=== PATIENT | male | born 1960 | race African-American/Black ===

== ENCOUNTER 2018-09-09 17:58 | Inpatient (IN) | payer MEDICAID ==
[~2018-09-09] VITALS: Ht 170.2 cm; Wt 54.0 kg
[~2018-09-09 17:58] MED LIST: DIVAL250 PO; LURA40TA PO
[2018-09-09] MEDS ORDERED: ASPIRIN 81MG TABLET PO ONE (18:30)
[2018-09-09] MEDS ORDERED: NITROGLYCERIN OINT 1GM/INCH UDPKT TD ONE (18:30)
[2018-09-09 19:09] LABS: BASOPHILS % 0.9 % (0.0-2.0); EOSINOPHILS % 3.6 % (0.0-5.0); HEMATOCRIT. 33.4 % (42.0-52.0); HEMOGLOBIN. 10.8 g/dL (14.0-18.0); LYMPHOCYTES % 20.5 % (20.0-50.0); MEAN CORPUSCULAR HEMOGLOBIN 28.8 pg (28.0-32.0); MEAN CORPUSCULAR VOLUME 88.8 fL (80.0-94.0); MEAN PLATELET VOLUME 6.3 fl (7.4-10.4); MONOCYTES % 11.2 % (2.0-8.0); NEUTROPHILS % 63.8 % (40.0-76.0); PLATELET 664 x1000/uL (130-400); RED BLOOD CELL COUNT 3.77 mill/uL (4.7-6.1); RED CELL DISTRIBUTION WIDTH 14.6 % (11.6-14.6)
[2018-09-09 19:13] LABS: CHLORIDE 102 mEq/L (98-107)
[2018-09-09 19:16] LABS: D-DIMER 1.04 mg/L FEU (<0.50); INR 1.1; PROTHROMBIN TIME 10.7 sec (9.1-11.1)
[2018-09-09] MEDS ORDERED: MORPHINE SULFATE 2 MG/ML CPJ (NOT FOR IM USE) IV ONE (20:15)
[2018-09-09] MEDS ORDERED: LEVOFLOXACIN 750MG PREMIX 150 ML IV ONE (20:15)
[2018-09-09] MEDS ORDERED: IOHEXOL-350 100 ML BOTTLE ONE (21:28)
[2018-09-10] VITALS (7 sets, daily range): BP systolic 110–130; BP diastolic 70–84
[2018-09-10] MEDS ORDERED: DIVA125T2 PO (01:26)
[2018-09-10] MEDS ORDERED: LURA20TA PO (01:26)
[2018-09-10] MEDS ORDERED: ACETAMINOPHEN 325MG TABLET PO PRN (01:45)
[2018-09-10] MEDS ORDERED: LORAZEPAM 1MG TABLET PO PRN (01:45)
[2018-09-10] MEDS: IPRATROPIUM/ALBUTEROL 0.5-3(2.5)MG/3ML NEB HHN SCH ×5 (05:44→22:03)
[2018-09-10] MEDS: MORPHINE SULFATE 4 MG/ML CPJ (NOT FOR IM USE) IV PRN ×2 (12:43→19:59)
[2018-09-10] MEDS ORDERED: LACTULOSE 20G/30ML UDC PO PRN (14:45)
[2018-09-10 15:54] LABS: CREATINE KINASE 90 IU/L (39-308); CREATINE KINASE MB FRACTION < 1.0 ng/mL (0.5-3.6); HDL CHOLESTEROL 36 mg/dL (40-59); LDL CHOLESTEROL 107 mg/dL (5-100)
[2018-09-10] MEDS: BUDESONIDE 0.5MG/2ML NEB HHN SCH ×2 (16:34→22:03)
[2018-09-10] MEDS: DOCUSATE SODIUM 100MG CAPSULE PO SCH (17:00)
[2018-09-10] MEDS ORDERED: LEVOFLOXACIN 500MG PREMIX 100 ML IV SCH (20:00)
[2018-09-11] VITALS (7 sets, daily range): BP systolic 107–150; BP diastolic 68–92
[2018-09-11] MEDS: IPRATROPIUM/ALBUTEROL 0.5-3(2.5)MG/3ML NEB HHN SCH ×6 (02:00→20:22)
[2018-09-11] MEDS: MORPHINE SULFATE 4 MG/ML CPJ (NOT FOR IM USE) IV PRN ×2 (05:35→15:34)
[2018-09-11] MEDS: BUDESONIDE 0.5MG/2ML NEB HHN SCH ×2 (08:10→20:23)
[2018-09-11] MEDS: DOCUSATE SODIUM 100MG CAPSULE PO SCH ×2 (08:25→17:00)
[2018-09-11 09:19] LABS: BASOPHILS % 0.4 % (0.0-2.0); HEMATOCRIT. 31.2 % (42.0-52.0); HEMOGLOBIN. 10.3 g/dL (14.0-18.0); LYMPHOCYTES % 15.7 % (20.0-50.0); MEAN CORPUSCULAR HEMOGLOBIN 29.3 pg (28.0-32.0); MEAN CORPUSCULAR VOLUME 88.8 fL (80.0-94.0); MEAN PLATELET VOLUME 6.1 fl (7.4-10.4); MONOCYTES % 14.8 % (2.0-8.0); NEUTROPHILS % 67.1 % (40.0-76.0); PLATELET 580 x1000/uL (130-400); RED BLOOD CELL COUNT 3.51 mill/uL (4.7-6.1); RED CELL DISTRIBUTION WIDTH 14.9 % (11.6-14.6)
[2018-09-11 10:49] LABS: CHLORIDE 99 mEq/L (98-107)
[2018-09-11] MEDS ORDERED: IPRATROPIUM/ALBUTEROL 0.5-3(2.5)MG/3ML NEB HHN PRN (13:00)
[2018-09-11] MEDS ORDERED: IOHEXOL-300 100 ML BOTTLE ONE (19:09)
[2018-09-12] VITALS (13 sets, daily range): BP systolic 99–139; BP diastolic 65–88
[2018-09-12] MEDS: IPRATROPIUM/ALBUTEROL 0.5-3(2.5)MG/3ML NEB HHN SCH ×6 (00:22→21:43)
[2018-09-12] MEDS: MORPHINE SULFATE 4 MG/ML CPJ (NOT FOR IM USE) IV PRN ×3 (01:48→18:01)
[2018-09-12 07:42] LABS: BASOPHILS % 0.6 % (0.0-2.0); HEMATOCRIT. 33.8 % (42.0-52.0); HEMOGLOBIN. 11.3 g/dL (14.0-18.0); MEAN CORPUSCULAR HEMOGLOBIN 29.4 pg (28.0-32.0); MEAN CORPUSCULAR VOLUME 87.7 fL (80.0-94.0); MEAN PLATELET VOLUME 6.3 fl (7.4-10.4); MONOCYTES % 11.9 % (2.0-8.0); NEUTROPHILS % 63.5 % (40.0-76.0); PLATELET 645 x1000/uL (130-400); RED BLOOD CELL COUNT 3.86 mill/uL (4.7-6.1); RED CELL DISTRIBUTION WIDTH 14.5 % (11.6-14.6)
[2018-09-12 07:50] LABS: FERRITIN 142 ng/mL (22-322)
[2018-09-12 08:04] LABS: VITAMIN B12 SERUM >2000 pg/mL pg/mL (211-911)
[2018-09-12 08:16] LABS: CHLORIDE 97 mEq/L (98-107)
[2018-09-12] MEDS: BUDESONIDE 0.5MG/2ML NEB HHN SCH ×2 (08:23→21:42)
[2018-09-12 08:48] LABS: TOTAL IRON BINDING CAPACITY 243 ug/dL (250-450)
[2018-09-12] MEDS ORDERED: FENTANYL CITRATE/PF 50MCG/ML 2ML VIAL ONE (11:54)
[2018-09-12] MEDS ORDERED: LIDOCAINE HCL 1% 20ML VIAL (Pyxis) INJ ONE (12:06)
[2018-09-12] MEDS ORDERED: SODIUM BICARBONATE 4% (2.4MEQ) 5ML VIAL IV ONE (12:06)
[2018-09-12] MEDS ORDERED: FENTANYL CITRATE/PF 50MCG/ML 2ML VIAL IV ONE (12:45)
[2018-09-12 16:08] LABS: HEMATOCRIT 31.9 % (42.0-52.0); HEMOGLOBIN 10.7 g/dL (14.0-18.0)
[2018-09-12] MEDS: DOCUSATE SODIUM 100MG CAPSULE PO SCH ×2 (18:02→18:04)
[2018-09-13] VITALS: BP 104/74
[2018-09-13] MEDS: MORPHINE SULFATE 4 MG/ML CPJ (NOT FOR IM USE) IV PRN ×3 (00:16→10:00)
[2018-09-13] MEDS: IPRATROPIUM/ALBUTEROL 0.5-3(2.5)MG/3ML NEB HHN SCH ×4 (03:11→15:55)
[2018-09-13 04:00] VITALS: BP 106/80
[2018-09-13] MEDS: BUDESONIDE 0.5MG/2ML NEB HHN SCH (07:53)
[2018-09-13 08:00] VITALS: BP 110/75
[2018-09-13] MEDS: DOCUSATE SODIUM 100MG CAPSULE PO SCH ×2 (10:00→15:28)
[2018-09-13 10:44] LABS: BASOPHILS % 0.5 % (0.0-2.0); EOSINOPHILS % 2.3 % (0.0-5.0); HEMATOCRIT. 29.2 % (42.0-52.0); HEMOGLOBIN. 10.1 g/dL (14.0-18.0); MEAN CORPUSCULAR HEMOGLOBIN 30.4 pg (28.0-32.0); MEAN CORPUSCULAR VOLUME 87.7 fL (80.0-94.0); MEAN PLATELET VOLUME 6.2 fl (7.4-10.4); MONOCYTES % 11.9 % (2.0-8.0); NEUTROPHILS % 61.3 % (40.0-76.0); PLATELET 577 x1000/uL (130-400); RED BLOOD CELL COUNT 3.33 mill/uL (4.7-6.1); RED CELL DISTRIBUTION WIDTH 14.3 % (11.6-14.6)
[2018-09-13 11:37] LABS: CHLORIDE 98 mEq/L (98-107)
[2018-09-13 12:00] VITALS: BP 101/66
[2018-09-13 13:42] VITALS: BP 101/66
[2018-09-13 16:00] VITALS: BP 112/80
== END 2018-09-13 19:17 | disposition home or self-care (01) | DRG 136 ==
LOC: ER 17:58 → 6WST 20:10 → EDBEDREQ 20:12 → EDBEDREQTM 20:12 → CANRESERV 21:47 → ENRESERV 21:47
PROVIDERS: ADMIT Internal Medicine; ATTEND Internal Medicine
PROC: 0FB13ZX Excision of Right Lobe Liver, Percutaneous Approach, Diagnostic (ICD-10-PCS; principal; 2018-09-12)
DX: C34.90 Malignant neoplasm of unspecified part of unspecified bronchus or lung (principal); J96.00 Acute respiratory failure, unspecified whether with hypoxia or hypercapnia; E43 Unspecified severe protein-calorie malnutrition; R64 Cachexia; C16.9 Malignant neoplasm of stomach, unspecified; C78.7 Secondary malignant neoplasm of liver and intrahepatic bile duct; R65.10 Systemic inflammatory response syndrome (SIRS) of non-infectious origin without acute organ dysfunction; K56.0 Paralytic ileus; J43.9 Emphysema, unspecified; J44.1 Chronic obstructive pulmonary disease with (acute) exacerbation; N28.1 Cyst of kidney, acquired; I10 Essential (primary) hypertension; I45.10 Unspecified right bundle-branch block; M94.0 Chondrocostal junction syndrome [Tietze]; D64.9 Anemia, unspecified; N43.3 Hydrocele, unspecified; F10.10 Alcohol abuse, uncomplicated; F17.210 Nicotine dependence, cigarettes, uncomplicated; F41.9 Anxiety disorder, unspecified; Z78.9 Other specified health status; Z85.028 Personal history of other malignant neoplasm of stomach; Z86.11 Personal history of tuberculosis; Z68.1 Body mass index [BMI] 19.9 or less, adult
CPT/HCPCS: 36415; 71045; 71275; 74177; 76700; 77012; 80048; 80061; 80076; 82105; 82378; 82550; 82553; 82607; 82728; 82746; 83540; 83550; 83880; 84145; 84443; 84484; 85014; 85018; 85379; 86301; 88307; 93005; 93306; 93970; 94640; 96374; 96375; 97162; 99285; J1956; J2270; J3010; J3490; J7040; J7620; J7626; Q9967

== ENCOUNTER 2018-09-27 11:35 | Inpatient (IN) | payer MEDICAID ==
[~2018-09-27] VITALS: Ht 177.8 cm; Wt 80.3 kg
[~2018-09-27 11:35] MED LIST changes: +DIVA125T2 PO; -DIVAL250 PO; +LURA20TA PO; -LURA40TA PO
[2018-09-27] MEDS ORDERED: SODIUM CHLORIDE 0.9% 1,000 ML IV ONE (11:49)
[2018-09-27] MEDS ORDERED: FENTANYL CITRATE/PF 50MCG/ML 2ML VIAL IV ONE (12:00)
[2018-09-27] MEDS ORDERED: KETOROLAC 30MG/ML VIAL IV ONE (12:00)
[2018-09-27] MEDS ORDERED: ONDANSETRON 4MG ODT PO ONE (12:00)
[2018-09-27] MEDS ORDERED: ASPIRIN 81MG TABLET PO ONE (12:15)
[2018-09-27] MEDS ORDERED: NITROGLYCERIN OINT 1GM/INCH UDPKT TD ONE (12:15)
[2018-09-27 13:08] LABS: BASOPHILS % 0.5 % (0.0-2.0); EOSINOPHILS % 1.2 % (0.0-5.0); HEMATOCRIT. 31.8 % (42.0-52.0); HEMOGLOBIN. 10.7 g/dL (14.0-18.0); LYMPHOCYTES % 23.8 % (20.0-50.0); MEAN CORPUSCULAR HEMOGLOBIN 29.6 pg (28.0-32.0); MEAN CORPUSCULAR VOLUME 87.6 fL (80.0-94.0); MEAN PLATELET VOLUME 6.7 fl (7.4-10.4); MONOCYTES % 11.5 % (2.0-8.0); PLATELET 412 x1000/uL (130-400); RED BLOOD CELL COUNT 3.63 mill/uL (4.7-6.1); RED CELL DISTRIBUTION WIDTH 14.1 % (11.6-14.6)
[2018-09-27 13:15] LABS: CHLORIDE 104 mEq/L (98-107)
[2018-09-27 13:19] LABS: ETHANOL BLOOD < 10 mg/dL
[2018-09-27 13:21] LABS: INR 1.1; PARTIAL THROMBOPLASTIN TIME 29.7 sec (23.4-31.0); PROTHROMBIN TIME 10.7 sec (9.1-11.1)
[2018-09-27 13:22] LABS: CREATINE KINASE 118 IU/L (39-308)
[2018-09-27 13:25] LABS: CREATINE KINASE MB FRACTION 1.3 ng/mL (0.5-3.6)
[2018-09-27 13:48] LABS: *AMPHETAMINES SCREEN URINE NEGATIVE (NEGATIVE); *BARBITURATES SCREEN URINE NEGATIVE (NEGATIVE); *BENZODIAZEPINES SCREEN URINE NEGATIVE (NEGATIVE); *COCAINE SCREEN URINE NEGATIVE (NEGATIVE); METHADONE URINE SCREEN NEGATIVE (NEGATIVE)
[2018-09-27 13:49] LABS: CANNABINOID URINE SCREEN NEGATIVE (NEGATIVE); OPIATES URINE SCREEN NEGATIVE (NEGATIVE); PHENCYCLIDINE URINE SCREEN NEGATIVE (NEGATIVE)
[2018-09-27 19:47] VITALS: BP 122/75
[2018-09-27 19:51] VITALS: BP 122/75
[2018-09-27] MEDS ORDERED: MORPHINE SULFATE 10MG/5ML ORAL SOLN UDC PO PRN (20:45)
[2018-09-27] MEDS ORDERED: LURASIDONE HCL PO SCH (21:00)
[2018-09-27] MEDS: NITROGLYCERIN OINT 1GM/INCH UDPKT TD SCH (21:36)
[2018-09-27] MEDS: METOPROLOL TARTRATE 25MG TABLET PO SCH (21:36)
[2018-09-27] MEDS ORDERED: IPRATROPIUM/ALBUTEROL 0.5-3(2.5)MG/3ML NEB HHN PRN (22:00)
[2018-09-27] MEDS: DIVALPROEX SODIUM 125MG EC TABLET PO SCH (22:49)
[2018-09-27 23:49] VITALS: BP 103/71
[2018-09-28 04:00] VITALS: BP 122/95
[2018-09-28] MEDS: NITROGLYCERIN OINT 1GM/INCH UDPKT TD SCH ×3 (05:43→21:45)
[2018-09-28 08:00] VITALS: BP 107/76
[2018-09-28] MEDS: METOPROLOL TARTRATE 25MG TABLET PO SCH ×2 (08:44→21:41)
[2018-09-28] MEDS: ASPIRIN 81MG TABLET PO SCH (08:44)
[2018-09-28 12:00] VITALS: BP 115/76
[2018-09-28 16:00] VITALS: BP 108/81
[2018-09-28 20:00] VITALS: BP 103/79
[2018-09-28 21:40] VITALS: BP 111/71
[2018-09-28] MEDS: DIVALPROEX SODIUM 125MG EC TABLET PO SCH (21:41)
[2018-09-28] MEDS: HYDROCODONE/ACETAMINOPHEN 5/325MG TABLET PO PRN (21:42)
[2018-09-29] VITALS: BP 110/66
[2018-09-29 04:00] VITALS: BP 107/74
[2018-09-29] MEDS: NITROGLYCERIN OINT 1GM/INCH UDPKT TD SCH ×2 (06:41→14:14)
[2018-09-29 07:30] LABS: HEMATOCRIT. 30.2 % (42.0-52.0); HEMOGLOBIN. 9.9 g/dL (14.0-18.0); MEAN CORPUSCULAR HEMOGLOBIN 28.8 pg (28.0-32.0); MEAN CORPUSCULAR VOLUME 87.5 fL (80.0-94.0); MEAN PLATELET VOLUME 6.9 fl (7.4-10.4); PLATELET 381 x1000/uL (130-400); RED BLOOD CELL COUNT 3.45 mill/uL (4.7-6.1); RED CELL DISTRIBUTION WIDTH 14.3 % (11.6-14.6)
[2018-09-29 08:00] VITALS: BP 96/67
[2018-09-29] MEDS: METOPROLOL TARTRATE 25MG TABLET PO SCH (09:00)
[2018-09-29] MEDS: ASPIRIN 81MG TABLET PO SCH (09:00)
[2018-09-29 09:36] LABS: CHLORIDE 99 mEq/L (98-107)
[2018-09-29] MEDS: HYDROCODONE/ACETAMINOPHEN 5/325MG TABLET PO PRN (09:41)
[2018-09-29 12:00] VITALS: BP 110/74
[2018-09-29 12:53] LABS: PLATELET ESTIMATE NORMAL
[2018-09-29 14:58] VITALS: BP 110/74
== END 2018-09-29 15:50 | disposition home or self-care (01) | DRG 203 ==
LOC: ER 11:35 → 7WST 14:37 → EDBEDREQ 14:46 → EDBEDREQTM 14:46 → ENRESERV 17:38
PROVIDERS: ADMIT Internal Medicine; ATTEND Internal Medicine
DX: M94.0 Chondrocostal junction syndrome [Tietze] (principal); E43 Unspecified severe protein-calorie malnutrition; C78.7 Secondary malignant neoplasm of liver and intrahepatic bile duct; C34.90 Malignant neoplasm of unspecified part of unspecified bronchus or lung; J44.9 Chronic obstructive pulmonary disease, unspecified; F17.200 Nicotine dependence, unspecified, uncomplicated; D64.9 Anemia, unspecified; N28.89 Other specified disorders of kidney and ureter; F31.9 Bipolar disorder, unspecified; I10 Essential (primary) hypertension; F41.9 Anxiety disorder, unspecified; Z86.11 Personal history of tuberculosis; Z68.25 Body mass index [BMI] 25.0-25.9, adult; Z71.6 Tobacco abuse counseling; Z85.028 Personal history of other malignant neoplasm of stomach
CPT/HCPCS: 36415; 71045; 80048; 80305; 82550; 82553; 83735; 83880; 84484; 93005; 94640; 96361; 96374; 97162; 99291; G0482; J1885; J3010; J7030; J7620; Q0162